=== PATIENT | male | born 1975 | race Caucasian/White ===

== ENCOUNTER 2019-12-05 08:09 | Outpatient (CLI) | payer OTHER, SELFPAY ==
--- NOTE | ~2019-12-05 | US_ITS ---
EXAMINATION: US art doppler w press LE BI DATE: 12/05/2019 08:47 INDICATION: Peripheral vascular disease. Claudication. TECHNIQUE: Segmental pressures and plethysmographic and Doppler waveforms of the brachial and lower e xtremity arteries were obtained. COMPARISON: None. FINDINGS: Right and left brachial artery pressures of 152 mm Hg and 156 mm Hg, respectively, are concordant (no rmal difference <= 30 mmHg). Left high thigh pressure index is 1.19, (normal > 1.2). The right high t high pressure index is unable to be obtained due to inability to occlude the vessel. The right ankle-brachial index (CALLEI) is 0.78 (normal >= 0.9-1). The right great toe-brachial index (T BI) is 0.99 (normal >= 0.6-0.8). The right lower extremity segmental pressure gradients are increased between the above and below the knee right popliteal artery as well as between the right dorsalis pe dis artery and the [id number] popliteal artery and finally between both the right dorsalis pedis and posterior tibial arteries relative to the contralateral left dorsalis pedis and posterior tibial arteries (normal gradients <= 20-30 mmHg between adjacent levels on the same leg or the same levels o n the two legs). Arterial waveforms are biphasic with brisk systolic upstrokes throughout the right l ower limb. The left CALLIE is 0.99. The left TBI is 0.65. The left lower extremity segmental pressure gradients are normal. Arterial waveforms are triphasic at the left common femoral and superficial femoral arteries and biphasic more distally with brisk systolic upstrokes throughout. IMPRESSION: 1. Mild arterial occlusive disease to the right lower limb with mildly decreased CALLIE. 2. No significant arterial occlusive disease to the left lower limb with normal left TBI and borderli ne normal CALLIE. Reviewed, dictated and finalized at location [facility]. IMPRESSION: 1. Mild arterial occlusive disease to the right lower limb with mildly decrease d CALLIE. 2. No significant arterial occlusive disease to the left lower limb with normal left TBI and borderline normal CALLIE.
== END 2019-12-05 08:10 | disposition home or self-care (01) ==
PROVIDERS: PCP Internal Medicine; Visit Provider Internal Medicine
DX: I73.9 Peripheral vascular disease, unspecified (principal); I77.1 Stricture of artery
CPT/HCPCS: 93923

== ENCOUNTER 2023-03-15 13:32 | Outpatient (CLI) | payer OTHER, SELFPAY ==
--- NOTE | ~2023-03-15 | CT_ITS ---
CT Scan of the Chest without Contrast: Clinical Indication: Lung cancer screening, personal history of nicotine dependence Technique: Contiguous sections were acquired throughout the chest without intravenous contrast. Dose reduction technique was used on this scan by utilizing automated exposure control and iterative recon struction technique. The dose-length product (DLP) was 248.56 mGy-cm. Findings: There is no evidence of any significant mediastinal, hilar or axillary lymphadenopathy. The mediastin al soft tissues appear normal. There is no evidence of pleural or pericardial effusion. 3 mm pleural-based nodule present the right lower lobe (axial image 63). Additional 3 mm pleural-base d right lower lobe pulmonary nodule present (axial image 52). 2 mm right upper lobe pulmonary nodule present (axial image 46). Images through the upper abdomen reveal no abnormalities. Impression: Lung RADS 2: Benign appearance. 12 month follow-up screening CT advised. Reviewed, dictated and finalized at [facility]. L CNC OPERATOR Impression: Lung RADS 2: Benign appearance. 12 month follow-up screening CT advised.
== END 2023-03-15 13:33 | disposition home or self-care (01) ==
PROVIDERS: PCP Internal Medicine; Visit Provider Physician Assistant
DX: Z12.2 Encounter for screening for malignant neoplasm of respiratory organs (principal); Z87.891 Personal history of nicotine dependence
CPT/HCPCS: 71271